=== PATIENT | male | born 1990 | race Two or more races ===

== ENCOUNTER 2017-08-13 16:06 | Emergency (ER) | payer MEDICAID ==
[~2017-08-13] VITALS: Ht 172.7 cm; Wt 70.8 kg
[2017-08-13 16:14] VITALS: BP 140/95
[2017-08-13] MEDS ORDERED: TETANUS-DIPTH-ACEL PERTUSSIS 0.5ML SYRG IM ONE (16:45)
== END 2017-08-13 17:02 | disposition home or self-care (01) ==
LOC: ER 16:06
DX: S61.411A Laceration without foreign body of right hand, initial encounter (principal); Z23 Encounter for immunization; W26.0XXA Contact with knife, initial encounter; Y93.89 Activity, other specified; Y92.89 Other specified places as the place of occurrence of the external cause; Y99.8 Other external cause status
CPT/HCPCS: 12001; 90471; 90715